=== PATIENT | female | born 1945 | race African-American/Black ===

== ENCOUNTER 2022-08-11 08:39 | Emergency (ER) | payer MEDICARE, OTHER ==
[~2022-08-11] VITALS: Ht 162.6 cm; Wt 46.3 kg
[~2022-08-11 08:39] MED LIST: AMLO10TA4 PO; ASPI-807 PO; ATOR80TA PO; FLUO40CA8 PO; LISI-658 PO; LISI1TAB PO; METF1000 PO; METO25TA20 PO; TRAM50TA2 PO
--- NOTE | 2022-08-11 08:57 | NUR ---
[id number] FROM HOME C/O GENERALIZED WEAKNESS SINCE THIS AM. PT HAS HX OF STROKE LAST YEAR, NO UNILATERAL DEFICIT BELOW THE HEAD. LEFT SIDED FACIAL DROOP NOTED BUT PT STATES, SHE HAS HAD THAT SINCE LAST YEAR. LIVES WITH DAUGHTER: RICHMOND [phone].
[2022-08-11] MEDS ORDERED: IV NS 0.9% 1,000 ML IV ONE (09:00)
--- NOTE | 2022-08-11 09:01 | NUR ---
PT PLACED IN BED AND MONITOR, [id number], VITAL SIGNS ARE STABLE.
--- NOTE | 2022-08-11 09:19 | NUR ---
PT TAKEN TO CT VIA [facility].
[2022-08-11 09:21] LABS: BASOPHILS % (AUTO) 0.4 % (0.0-2.0); EOSINOPHILS % (AUTO) 1.7 % (0.0-6.0); HEMATOCRIT 46 % (33-45); HEMOGLOBIN 15.2 g/dL (11.5-14.8); LYMPHOCYTES # (AUTO) 1.1 K/uL (0.8-4.8); LYMPHOCYTES % (AUTO) 9.9 % (20.0-44.0); MEAN CORPUSCULAR HGB CONC 33 g/dl (31.0-36.0); MEAN CORPUSCULAR VOLUME 96 fL (82-100); MONOCYTES # (AUTO) 0.8 K/uL (0.1-1.30); MONOCYTES % (AUTO) 7.5 % (2.0-12.0); NEUTROPHILS # (AUTO) 8.7 K/uL (1.8-8.9); NEUTROPHILS % (AUTO) 80.5 % (43.0-81.0); PLATELET COUNT (AUTO) 227 K/uL (150-450); RED BLOOD CELL COUNT(AUTO) 4.74 MIL/uL (4.0-5.2); WHITE BLOOD COUNT (AUTO) 10.8 K/uL (4.3-11.0)
[2022-08-11 09:39] LABS: SERUM AMMONIA 5 umol/L (11-32)
[2022-08-11 09:43] LABS: ALANINE AMINOTRANSFERASE 19 U/L (12-78); ALBUMIN 3.5 g/dL (3.4-5.0); ALKALINE PHOSPHATASE 73 U/L (46-116); ASPARTATE AMINOTRANSFERASE 16 U/L (15-37); BILIRUBIN,DIRECT 0.2 mg/dL (0.0-0.2); BILIRUBIN,TOTAL 0.7 mg/dL (0.2-1.0); CALCIUM, SERUM 8.8 mg/dL (8.5-10.1); CARBON DIOXIDE 27 mmol/L (21-32); CHLORIDE 103 mmol/L (98-107); CREATININE 1.8 mg/dL (0.6-1.3); GLUCOSE 223 mg/dL (74-106); POTASSIUM 3.3 mmol/L (3.5-5.1); SODIUM SERUM 137 mmol/L (136-145); TOTAL PROTEIN, SERUM 6.8 g/dL (6.4-8.2); UREA NITROGEN, BLOOD 42 mg/dL (7-18)
--- NOTE | 2022-08-11 09:45 | NUR ---
pt to CT
--- NOTE | 2022-08-11 10:30 | NUR ---
pt voiding per bedpan, no distess noted ,continue to monitor
[2022-08-11] MEDS ORDERED: HYDR-4077 PO (11:36)
[2022-08-11] MEDS ORDERED: FAMO20TA8 PO (11:36)
[2022-08-11] MEDS ORDERED: NIFE90TA38 PO (11:36)
[2022-08-11] MEDS ORDERED: CLOP75TA15 PO (11:36)
[2022-08-11] MEDS ORDERED: CARV25TA2 PO (11:36)
[2022-08-11] MEDS ORDERED: DAPA5TAB PO (11:36)
[2022-08-11] MEDS ORDERED: CHLO25TA2 PO (11:36)
[2022-08-11] MEDS ORDERED: INSU100V7 SQ (11:36)
[2022-08-11] MEDS ORDERED: MIRT-91 PO (11:36)
[2022-08-11 11:37] LABS: THYROID STIMULATING HORMONE 0.538 uIU/mL (0.358-3.74)
[2022-08-11 11:53] LABS: BILIRUBIN,URINE NEGATIVE (NEGATIVE); COLOR,URINE YELLOW (YELLOW); LEUKOCYTE ESTERASE ,URINE 1+ (NEGATIVE); NITRITE, URINE NEGATIVE (NEGATIVE); PH,URINE 5.5 (5.0-8.0); PROTEIN,URINE NEGATIVE (NEGATIVE); UGLUCOSE 3+ mg/dL (NEGATIVE); UROBILINOGEN,URINE 0.2 EU/dL (0.2)
--- NOTE | 2022-08-11 12:30 | NUR ---
PT SLEEPING , VSS STABLE , CONTINUE TO MONITOR
[2022-08-11 13:41] LABS: BACTERIA,URINE Few /HPF (None Seen); RBC,URINE 0-2 /HPF (0-2); WBC,URINE 21-50 /HPF (0-3)
[2022-08-11 13:42] LABS: SQUAMOUS EPITHELIAL CELL,UR Moderate /HPF (None Seen)
[2022-08-11] MEDS ORDERED: SULF1TAB48 PO (13:51)
--- NOTE | 2022-08-11 14:00 | NUR ---
[facility] CALLED FOR TRANSPORT ETA 1600 PER AMY
--- NOTE | 2022-08-11 14:06 | NUR ---
pt will be picked up by her daughter . pt stable , continue to monitor
--- NOTE | 2022-08-11 15:24 | NUR ---
Patient discharged to home in stable condition. Written and verbal after care instructions given to Patient and her daughter , verbalize understanding of instruction. iv site d/junior . pt discharge home accompanied by her chadder in stable condition
[2022-08-11 15:26] VITALS: BP 145/60
== END 2022-08-11 15:26 | disposition home or self-care (01) ==
LOC: ER 08:48
DX: R53.1 Weakness (principal); N39.0 Urinary tract infection, site not specified; I69.354 Hemiplegia and hemiparesis following cerebral infarction affecting left non-dominant side; I10 Essential (primary) hypertension; E11.9 Type 2 diabetes mellitus without complications; F32.A Depression, unspecified; Z79.899 Other long term (current) drug therapy
CPT/HCPCS: 99285; 96360; 70450; 71045; 93005; 82140; 85025; 80048; 82550; 87086; 80076; 83735; 81001; 36415; 84439; 84443; 84484; 85730; 83880; 82962; J7030; J7040